=== PATIENT | female | born 1965 | race Caucasian/White ===

== ENCOUNTER → 2016-11-02 | Outpatient (CLI) | payer BC ==
--- NOTE | 2016-11-02 18:12 | Diagnostic Imaging Report ---
Bilateral screening mammogram. The current study was also evaluated with a Computer Aided Detection (CAD) system. INDICATION: Screening. No current complaints stated on the questionnaire. COMPARISON: 10/20/2015. FINDINGS: The breasts are composed of scattered fibroglandular densities. Occasional benign-appearing calcifications are seen. Allowing for technique and positional differences, no suspicious change is seen. IMPRESSION: No significant change. ACR BI-RADS Category 2: Benign findings. Result letter will be mailed to the patient. Note: At least 10% of breast cancer is not imaged by mammography. Dictated by: Dictated on workstation # [id number]
== END ==
LOC: RAD 09:19
PROVIDERS: ATTEND Obstetrics & Gynecology
DX: Z12.31 Encounter for screening mammogram for malignant neoplasm of breast (principal)
CPT/HCPCS: 77067

== ENCOUNTER 2017-08-04 07:05 | Outpatient (CLI) | payer BC ==
[~2017-08-04] VITALS: Ht 166.4 cm; Wt 77.1 kg
[2017-08-04] MEDS ORDERED: NORG1TAB14 PO (10:38)
== END 2017-08-04 10:42 ==
LOC: PREOP 07:05
PROVIDERS: ATTEND Internal Medicine
DX: Z01.818 Encounter for other preprocedural examination (principal); Z11.2 Encounter for screening for other bacterial diseases

== ENCOUNTER 2017-08-12 06:59 | Day surgery (SDC) | payer BC ==
--- NOTE | 2017-08-02 06:27 | HISTORY AND PHYSICAL ---
DATE OF SERVICE: COLONOSCOPY HISTORY AND PHYSICAL HISTORY OF PRESENT ILLNESS: The patient is a 52-year-old white female referred by Dr. Franklin for her first screening colonoscopy. She is deemed to be of average risk as she is not aware of any family history for colon cancer or polyps, or inflammatory bowel disease. She is not aware of any history of GI bleeding and denies melena or bright red blood per rectum. She reports that her weight has been stable and she denies bowel habit change. PAST MEDICAL HISTORY: Relatively unremarkable. She is only on hormone replacement in the form of Sprintec. She has no past history of cardiovascular or pulmonary disease. PAST SURGICAL HISTORY: She had right wrist surgery several years ago and reported no other significant past surgical history. FAMILY HISTORY: Father is living at the age of 85 with history of heart disease and recent diagnosis of bladder cancer. Mother at the age of 74 secondary to complications of Alzheimer's and COPD. 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 REVIEW OF SYSTEMS: CONSTITUTIONAL: She denies any night sweats, chills, fever or weight change. CARDIOVASCULAR: She denies palpitations, presyncope, syncope or chest discomfort. Denies orthopnea, PND or pedal edema. PULMONARY: She denies chest pain, cough, wheezing, dyspnea on exertion or shortness of breath. GASTROINTESTINAL: As per HPI. PSYCHIATRIC: She denies any problems with depression or anxiety. PHYSICAL EXAMINATION: GENERAL: Reveals a well-appearing white female, articulate, in no acute distress. VITAL SIGNS: Weight is 174.4 pounds, blood pressure 120/84, heart rate 72 and regular. HEENT: Oral cavity reveals Mallampati class II pharyngeal configuration. Pharynx reveals no erythema or exudate. NECK: Reveals no JVD, adenopathy or bruits. CHEST: Clear. CARDIOVASCULAR: Reveals a regular rate and rhythm without murmur, S3 or S4. ABDOMEN: Soft, supple without mass, organomegaly or tenderness. Bowel sounds are positive. No bruits are noted. EXTREMITIES: Reveal no cyanosis, clubbing or edema. LABORATORY DATA: Electronic medical record at [facility] was reviewed. She did undergo EGD evaluation per Dr. Fatima for epigastric pain in 2007 revealing mild gastritis and a small hiatal hernia without evidence for erosive esophagitis. ASSESSMENT: The patient is set up for her first screening colonoscopy on 08/12. Prep instructions with Suprep kit. Questions were answered, after-instructions were given. I thank you for the referral of this pleasant lady. Job ID: [id number] DocumentID: [id number] Dictated Date: 07/27/2017 16:42:43 Safety Security Officer Date: 07/27/2017 17:08:47 Dictated By: RUDY PASCUAL MD
[~2017-08-12] VITALS: Ht 166.4 cm; Wt 77.1 kg
[~2017-08-12 06:59] MED LIST: NORG1TAB14 PO
[2017-08-12] MEDS ORDERED: 1/2 NS IV SOLUTION 1,000 ML IV ONE (07:04)
[2017-08-12] MEDS ORDERED: 1/2 NS IV SOLUTION 1,000 ML IV STA (07:12)
[2017-08-12] MEDS ORDERED: LIDOCAINE JELLY 2% (XYLOCAINE) 5 ML TUBE MM PRN (07:15)
[2017-08-12 07:29] VITALS: BP 122/91
[2017-08-12] MEDS ORDERED: LIDOCAINE JELLY 2% (XYLOCAINE) 5 ML TUBE ONE (07:58)
[2017-08-12] MEDS ORDERED: fentaNYL INJECTION 100 MCG/2 ML AMP ONE ×2 (07:58→08:16)
[2017-08-12] MEDS ORDERED: MIDAZOLAM 2 MG/2 ML (VERSED) VIAL ONE ×3 (07:58→08:24)
--- NOTE | 2017-08-12 08:01 | Pre-Op Note & Conscious Sedat ---
Pre-Operative Progress Note H&P Reviewed The H&P was reviewed, patient examined and no changes noted. Date H&P Reviewed: Aug 12, 2017 Time H&P Reviewed: 07:50 Conscious Sedation Pre-Proced ASA Class: 1 Airway Mallampati Classification: (squaxin appropriate class) I. II. III, IV Lungs Heart ASA score ASA 1: a normal healthy patient ASA 2: a patient with a mild systemic disease (mid diabetes, controlled hypertension, obesity ASA 3: a patient with a severe systemic disease that limits activity (angina , COPD, prior Myocardial infarction) ASA 4: a patient with an incapacitating disease that is a constant threat to life (CHF, renal failure) ASA 5: a moribund patient not expected to survive 24 hrs. (ruptured aneurysm) ASA 6: a declared brain patient whose organs are being harvested. For emergent operations, add the letter E after the classification Grade 2 Sedation Plan: Analgesia, Amnesia, Plan communicated to team members, Discussed options with patient/fam, Discussed risks with patient/fam Note The patient is an appropriate candidate to undergo the planned procedure, sedation, and anesthesia. The patient immediately re-assessed prior to indication. RUDY PASCUAL MD Aug 12, 2017 08:01
[2017-08-12] MEDS: fentaNYL INJECTION 100 MCG/2 ML AMP IVP PRN ×4 (08:05→08:24)
[2017-08-12] MEDS: MIDAZOLAM 2 MG/2 ML (VERSED) VIAL IVP PRN ×3 (08:06→08:25)
[2017-08-12 09:00] VITALS: BP 116/78
[2017-08-12 09:30] VITALS: BP 107/75
[2017-08-12] MEDS ORDERED: ONDANSETRON 4 MG (ZOFRAN) ORAL DISSOLVE TAB PO ONE (10:00)
[2017-08-12 10:25] VITALS: BP 107/75
--- NOTE | 2017-08-13 00:20 | OPERATIVE REPORT ---
DATE OF SERVICE: COLONOSCOPY SUMMARY INDICATIONS: The patient is a 52-year-old white female, referred by Dr. Franklin, for her first screening colonoscopy. She is deemed to be of average risk as she is not aware of any family history for colon cancer. DESCRIPTION OF PROCEDURE: The patient was placed in the left lateral decubitus position. Prior to undergoing colonoscopy, digital rectal evaluation was performed. The anal sphincter tone was normal and the perianal reflexes were intact. No abnormalities, no additional inspection of the anal canal or distal rectal vault. The colonoscope was then inserted into the rectum and under direct visualization advanced to the cecum. The cecum was identified by identification of the ileocecal valve and cecal strap. Photographic documentation was obtained. Careful inspection was made as the colonoscope was withdrawn. The patient did have a fair amount of sigmoid colonic spasm with increased sensitivity to air insufflation and colonic manipulation compatible with an irritable bowel type response. She did require a total of 6 mg of Versed and 150 mg of fentanyl. In the recovery room after the procedure, the patient did have some nausea and vomiting right after her IV was removed. She was given 4 mg of Zofran via melt tab, observed until there is resolution of nausea. She was discharged voicing no complaints. FINDINGS: There is no evidence for internal or external hemorrhoids. Present in the distal rectum was a diminutive hyperplastic appearing polyp. It was biopsied and ablated and submitted for histopathology with minimal blood loss. The remainder of the rectum was unremarkable. Several small sigmoid diverticula were present without evidence for diverticulitis. The remainder of the sigmoid colon was unremarkable. The descending colon and splenic flexure were normal. 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 No other abnormalities were noted involving the transverse colon, hepatic flexure, ascending colon and cecum. ASSESSMENT: 1. The patient did have an irritable bowel type response to air insufflation and colonic manipulation. 2. One diminutive hyperplastic appearing polyp that was present in the distal rectum as long as this was confirmed on histopathology and the patient continues to have no known family history for colon cancer, we would advocate consideration for repeat screening in 10 years. I thank you for the referral of this pleasant lady. Job ID: [id number] DocumentID: [id number] Dictated Date: 08/12/2017 12:10:34 Administrative Support Coordinator Date: 08/13/2017 00:19:43 Dictated By: RUDY PASCUAL MD
== END 2017-08-12 10:25 | disposition home or self-care (01) ==
LOC: ENDO 06:59
PROVIDERS: ATTEND Internal Medicine
DX: Z12.11 Encounter for screening for malignant neoplasm of colon (principal); K62.1 Rectal polyp; K57.30 Diverticulosis of large intestine without perforation or abscess without bleeding; K58.9 Irritable bowel syndrome, unspecified; R11.2 Nausea with vomiting, unspecified
CPT/HCPCS: 84703

== ENCOUNTER → 2017-10-18 | Outpatient (CLI) | payer BC ==
--- NOTE | 2017-10-18 13:27 | Diagnostic Imaging Report ---
EXAMINATION: Digital mammogram bilateral screening with 3D tomosynthesis and CAD. COMPARISON: 11/02/2016, 10/20/2015, and 10/24/2014. PERSONAL HISTORY: At this time, there are no current complaints. FINDINGS: The fibroglandular tissue in both breasts is heterogeneously dense. This does limit the sensitivity of this exam. Overall, there does not appear to have been any significant change when compared to the prior study. No primary or secondary sign of malignancy is noted. IMPRESSION: There is no radiographic evidence for malignancy. ACR BI-RADS Category 1: Negative. Result letter will be mailed to the patient. Note: At least 10% of breast cancer is not imaged by mammography. Dictated by: Dictated on workstation # [id number]
== END ==
LOC: RAD 08:01
PROVIDERS: ATTEND Obstetrics & Gynecology
DX: Z12.31 Encounter for screening mammogram for malignant neoplasm of breast (principal)
CPT/HCPCS: 77067

== ENCOUNTER → 2018-10-18 | Outpatient (CLI) | payer BC ==
--- NOTE | 2018-10-18 13:18 | Diagnostic Imaging Report ---
INDICATION: Routine screening. Comparison is made with prior mammogram from 10/18/2017 and 11/02/2016. 2-D and 3-D bilateral screening mammography was performed with a Computer Aided Detection (CAD) system. FINDINGS: Scattered fibroglandular densities are identified bilaterally. Benign-appearing calcifications are identified bilaterally. No mass or malignant appearing microcalcifications are seen. Axillae are unremarkable. IMPRESSION: No mammographic features suspicious for malignancy are identified. ACR BI-RADS Category 2: Benign findings. Result letter will be mailed to the patient. Note: At least 10% of breast cancer is not imaged by mammography. Dictated by: Dictated on workstation # [id number]
== END ==
LOC: RAD 09:42
PROVIDERS: ATTEND Obstetrics & Gynecology
DX: Z12.31 Encounter for screening mammogram for malignant neoplasm of breast (principal)
CPT/HCPCS: 77067

== ENCOUNTER → 2019-10-24 | Outpatient (CLI) | payer BC ==
--- NOTE | 2019-10-24 12:29 | Diagnostic Imaging Report ---
INDICATION: Routine screening. COMPARISON: 10/18/2018 and 10/18/2017. TECHNIQUE: 2D and 3D bilateral screening mammography was performed with CAD. FINDINGS: Both breasts remain heterogeneously dense, limiting the sensitivity of mammography. The parenchymal pattern is stable. No mass or malignant appearing microcalcifications are identified. The axillae are unremarkable. IMPRESSION: No mammographic features suspicious for malignancy are identified. ACR BI-RADS Category 1: Negative. Result letter will be mailed to the patient. Note: At least 10% of breast cancer is not imaged by mammography. Dictated by: Dictated on workstation # [id number]
== END ==
LOC: RAD 09:37
PROVIDERS: ATTEND Obstetrics & Gynecology
DX: Z12.31 Encounter for screening mammogram for malignant neoplasm of breast (principal)
CPT/HCPCS: 77063; 77067

== ENCOUNTER → 2021-10-20 | Outpatient (CLI) | payer BC ==
--- NOTE | 2021-10-20 20:16 | Diagnostic Imaging Report ---
3-D mammogram, bilateral screening. This study included evaluation with a Computer Aided Detection (CAD) system. COMPARISON: This study was compared to the prior exams as far back as 10/18/2017. At this time, there are no current complaints. FINDINGS: The fibroglandular tissue in both breasts is heterogeneously dense. This does limit the sensitivity of this exam. Overall, there does not appear to have been any significant change when compared to the prior study. No primary or secondary sign of malignancy is noted. IMPRESSION: There is no radiographic evidence for malignancy. ACR BI-RADS Category 1: Negative. Result letter will be mailed to the patient. Note: At least 10% of breast cancer is not imaged by mammography. Dictated by: Dictated on workstation # [id number]
== END ==
LOC: RAD 10:02
PROVIDERS: ATTEND Obstetrics & Gynecology
DX: Z12.31 Encounter for screening mammogram for malignant neoplasm of breast (principal)
CPT/HCPCS: 77063; 77067